=== PATIENT | female | born 1930 | race Two or more races ===

== ENCOUNTER 2018-06-05 21:18 | Inpatient (IN) | payer OTHER ==
[~2018-06-05] VITALS: Ht 162.6 cm; Wt 55.6 kg
[2018-06-05 22:02] LABS: Basophils # (auto) 0.1 uL; Basophils % (auto) 0.9 % (0.0-2.0); Eosinophils # (auto) 0 uL; Eosinophils % (auto) 0.4 % (0.0-7.0); Hematocrit 36.6 % (36.0-46.0); Hemoglobin 12.1 g/dL (12.2-16.2); Lymphocytes # (auto) 0.7 uL; Mean Corpuscular Hemoglobin 31.1 pg (28.0-32.0); Mean Corpuscular Hgb Conc. 32.9 g/dL (32.0-36.0); Mean Corpuscular Volume 94.5 fL (80.0-100.0); Monocytes # (auto) 0.6 uL; Monocytes % (auto) 7.1 % (0.0-12.0); Neutrophils # (auto) 7.1 uL; Neutrophils % (auto) 83.6 % (37.0-80.0); Nucleated Red Blood Cells % 0.1 %; Platelet Count (auto) 132 10^3/uL (140-450); Red Blood Cells 3.87 10^6/uL (4.0-5.20); Red Cell Distribution Width 15.3 % (11.8-14.3); White Blood Cell 8.5 10^3/uL (4.4-10.8)
[2018-06-05 22:09] LABS: Albumin 3.2 g/dL (3.4-5.0); BUN/Creatinine Ratio 25.4; Calcium 7.9 mg/dL (8.5-10.1); Magnesium 2.2 mg/dL (1.6-2.6); Potassium 4.5 mmol/L (3.5-5.1)
[2018-06-05 22:14] LABS: Bilirubin, Total 0.4 mg/dL (0.2-1.0); Total Protein 6.7 g/dL (6.4-8.2)
[2018-06-05] MEDS ORDERED: cloNIDine HCL 0.1 MG TAB PO ONE (23:00)
[2018-06-06] VITALS (8 sets, daily range): BP systolic 104–128; BP diastolic 63–76
[2018-06-06] MEDS ORDERED: FUROSEMIDE 40 MG/4 ML VIAL IV ONE
[2018-06-06] MEDS ORDERED: HYDROcodone-ACET 5/325MG TAB PO PRN (01:30)
[2018-06-06] MEDS ORDERED: ACETAMINOPHEN 325 MG TAB PO PRN (01:30)
[2018-06-06] MEDS ORDERED: ONDANSETRON HCL 4 MG/2 ML VIAL IV PRN (01:30)
[2018-06-06] MEDS ORDERED: NITROGLYCERIN 0.4 MG SL TAB SL PRN (01:30)
[2018-06-06] MEDS ORDERED: TEMAZEPAM 15 MG CAP PO PRN (01:30)
[2018-06-06] MEDS ORDERED: MORPHINE SULFATE 4 MG/ML SYR/VIAL IV PRN (01:30)
[2018-06-06 05:36] LABS: INR 1.57 (0.9-1.15); Partial Thromboplastin Time 29.4 sec (23.78-33.04); Prothrombin Time 16.4 sec (9.27-12.13)
[2018-06-06] MEDS ORDERED: WARF3TAB22 PO (05:58)
[2018-06-06] MEDS ORDERED: ENAL5TAB PO (05:58)
[2018-06-06] MEDS ORDERED: AMIO200T33 PO (05:58)
[2018-06-06] MEDS ORDERED: DOCU100C8 PO (05:58)
[2018-06-06] MEDS: FUROSEMIDE 20 MG/2 ML VIAL IV SCH ×2 (06:16→18:00)
[2018-06-06] MEDS: CARVEDILOL 3.125 MG TAB PO SCH ×2 (08:25→19:36)
[2018-06-06] MEDS: AMIODARONE HCL 200 MG TAB PO SCH (08:26)
[2018-06-06] MEDS: ENALAPRIL MALEATE 2.5 MG TAB PO SCH (08:27)
[2018-06-06] MEDS: ASPirin 81 mg TAB PO SCH (08:27)
[2018-06-06 15:54] LABS: Basophils # (auto) 0 uL; Basophils % (auto) 0.4 % (0.0-2.0); Eosinophils # (auto) 0.1 uL; Eosinophils % (auto) 0.6 % (0.0-7.0); Hematocrit 34.3 % (36.0-46.0); Hemoglobin 11.5 g/dL (12.2-16.2); Lymphocytes # (auto) 0.5 uL; Lymphocytes % (auto) 5.8 % (10.0-50.0); Mean Corpuscular Hemoglobin 31.7 pg (28.0-32.0); Mean Corpuscular Hgb Conc. 33.6 g/dL (32.0-36.0); Mean Corpuscular Volume 94.4 fL (80.0-100.0); Monocytes # (auto) 0.5 uL; Monocytes % (auto) 5.9 % (0.0-12.0); Neutrophils # (auto) 7.2 uL; Neutrophils % (auto) 87.3 % (37.0-80.0); Platelet Count (auto) 123 10^3/uL (140-450); Red Blood Cells 3.64 10^6/uL (4.0-5.20); Red Cell Distribution Width 15.2 % (11.8-14.3); White Blood Cell 8.3 10^3/uL (4.4-10.8)
[2018-06-06 15:57] LABS: BUN/Creatinine Ratio 20.8; Calcium 8.2 mg/dL (8.5-10.1); Magnesium 2.2 mg/dL (1.6-2.6); Potassium 4.1 mmol/L (3.5-5.1)
[2018-06-06] MEDS ORDERED: WARFARIN SODIUM 1 MG TAB PO ONE (17:00)
[2018-06-06] MEDS ORDERED: PHYTONADIONE (VIT K)10 MG/ML 1ML VIAL SUBCUT ONE (20:00)
[2018-06-07 05:11] VITALS: BP 109/53
[2018-06-07] MEDS: FUROSEMIDE 20 MG/2 ML VIAL IV SCH ×2 (06:00→17:58)
[2018-06-07 06:58] LABS: Basophils # (auto) 0 uL; Basophils % (auto) 0.4 % (0.0-2.0); Eosinophils # (auto) 0.1 uL; Eosinophils % (auto) 1.9 % (0.0-7.0); Hematocrit 32.9 % (36.0-46.0); Hemoglobin 11.1 g/dL (12.2-16.2); Lymphocytes # (auto) 0.7 uL; Lymphocytes % (auto) 10.8 % (10.0-50.0); Mean Corpuscular Hemoglobin 31.9 pg (28.0-32.0); Mean Corpuscular Hgb Conc. 33.7 g/dL (32.0-36.0); Mean Corpuscular Volume 94.6 fL (80.0-100.0); Monocytes # (auto) 0.6 uL; Monocytes % (auto) 8.9 % (0.0-12.0); Neutrophils # (auto) 5.2 uL; Platelet Count (auto) 106 10^3/uL (140-450); Red Blood Cells 3.48 10^6/uL (4.0-5.20); White Blood Cell 6.6 10^3/uL (4.4-10.8)
[2018-06-07 06:59] LABS: INR 1.26 (0.9-1.15); Partial Thromboplastin Time 29.7 sec (23.78-33.04); Prothrombin Time 13.3 sec (9.27-12.13)
[2018-06-07 07:14] LABS: Potassium 4.1 mmol/L (3.5-5.1)
[2018-06-07 07:19] LABS: Albumin 2.7 g/dL (3.4-5.0); BUN/Creatinine Ratio 26.7; Calcium 8.3 mg/dL (8.5-10.1)
[2018-06-07 07:21] LABS: Bilirubin, Total 0.8 mg/dL (0.2-1.0); Total Protein 5.7 g/dL (6.4-8.2)
[2018-06-07 08:04] VITALS: BP 120/74
[2018-06-07 08:30] VITALS: BP 120/74
[2018-06-07] MEDS: AMIODARONE HCL 200 MG TAB PO SCH (09:14)
[2018-06-07] MEDS: CARVEDILOL 3.125 MG TAB PO SCH ×2 (09:14→17:59)
[2018-06-07] MEDS: ASPirin 81 mg TAB PO SCH (09:14)
[2018-06-07] MEDS: ENALAPRIL MALEATE 2.5 MG TAB PO SCH (09:15)
[2018-06-07 13:00] VITALS: BP 102/58
[2018-06-07] MEDS ORDERED: FURO20TA PO (13:07)
[2018-06-07 14:46] VITALS: BP 102/58
[2018-06-07 17:00] VITALS: BP 114/63
[2018-06-07] MEDS ORDERED: WARFARIN SODIUM 2 MG TAB PO ONE (17:00)
== END 2018-06-07 19:24 | disposition home health service (06) | DRG 291 ==
LOC: EDBD 21:18 → ER 21:44 → TELE 06-06 01:33 → TELE-WESTW 06-06 02:18
PROVIDERS: ADMIT Nurse Practitioner; ATTEND Internal Medicine
PROC: 0W9B3ZZ Drainage of Left Pleural Cavity, Percutaneous Approach (ICD-10-PCS; principal; 2018-06-07)
DX: I13.0 Hypertensive heart and chronic kidney disease with heart failure and stage 1 through stage 4 chronic kidney disease, or unspecified chronic kidney disease (principal); I50.43 Acute on chronic combined systolic (congestive) and diastolic (congestive) heart failure; J90 Pleural effusion, not elsewhere classified; N18.3 Chronic kidney disease, stage 3 (moderate); I48.0 Paroxysmal atrial fibrillation; J44.9 Chronic obstructive pulmonary disease, unspecified; I70.0 Atherosclerosis of aorta; K21.9 Gastro-esophageal reflux disease without esophagitis; K59.09 Other constipation; Z79.01 Long term (current) use of anticoagulants; Z79.899 Other long term (current) drug therapy; Z95.2 Presence of prosthetic heart valve; Z98.49 Cataract extraction status, unspecified eye; Z79.82 Long term (current) use of aspirin
CPT/HCPCS: 10022; 36415; 71045; 76604; 76942; 80048; 80053; 83615; 83735; 83880; 84484; 85025; 85610; 85730; 87070; 87205; 89051; 93005; 93306; 96374; A6257; G0378; J3430

== ENCOUNTER 2018-09-28 03:58 | Inpatient (IN) | payer OTHER, MEDICAID | END 2018-10-01 15:10 | LOC: ER 03:58 → TELE 09:24 → TELE-EAST 20:20 | PROC: 0W9B3ZX Drainage of Left Pleural Cavity, Percutaneous Approach, Diagnostic (ICD-10-PCS; principal; ~2018-09-28) | DX: J90 Pleural effusion, not elsewhere classified (principal); J18.9 Pneumonia, unspecified organism; I13.0 Hypertensive heart and chronic kidney disease with heart failure and stage 1 through stage 4 chronic kidney disease, or unspecified chronic kidney disease; R06.03 Acute respiratory distress; Z95.2 Presence of prosthetic heart valve; I05.0 Rheumatic mitral stenosis; I48.91 Unspecified atrial fibrillation; I50.9 Heart failure, unspecified; D63.8 Anemia in other chronic diseases classified elsewhere; N18.3 Chronic kidney disease, stage 3 (moderate) ==

== ENCOUNTER 2019-02-07 18:30 | Inpatient (IN) | payer OTHER, MEDICAID | END 2019-02-12 18:00 | LOC: TELE 18:31 → TELE-EAST 02-08 18:25 → ER 18:30 | DX: I11.0 Hypertensive heart disease with heart failure (principal); J18.8 Other pneumonia, unspecified organism; J44.0 Chronic obstructive pulmonary disease with (acute) lower respiratory infection; I50.33 Acute on chronic diastolic (congestive) heart failure; K21.9 Gastro-esophageal reflux disease without esophagitis; F41.9 Anxiety disorder, unspecified; I48.91 Unspecified atrial fibrillation; Z66 Do not resuscitate ==

== ENCOUNTER 2019-03-07 17:55 | Inpatient (IN) | payer OTHER, MEDICAID ==
[~2019-03-07] VITALS: Ht 165.1 cm; Wt 68.5 kg
[~2019-03-07 17:55] MED LIST: AMIO200T33 PO; BRIM0.1S3 EACHEYE; CARV3.1240 PO; DOCU100C8 PO; ENAL5TAB PO; ENO60SY SC; FURO1TAB33 PO; LATA0.0015 EACHEYE; POTA10TA51 PO; TIMO0.5S66 EACHEYE; WARF3TAB22 PO
[2019-03-07 20:13] LABS: Basophils # (auto) 0.1 uL; Basophils % (auto) 0.9 % (0.0-2.0); Eosinophils # (auto) 0.1 uL; Eosinophils % (auto) 1.7 % (0.0-7.0); Hematocrit 37.2 % (36.0-46.0); Hemoglobin 12.4 g/dL (12.2-16.2); Lymphocytes # (auto) 0.8 uL; Lymphocytes % (auto) 13.7 % (10.0-50.0); Mean Corpuscular Hgb Conc. 33.4 g/dL (32.0-36.0); Mean Corpuscular Volume 95.7 fL (80.0-100.0); Monocytes # (auto) 0.6 uL; Monocytes % (auto) 10.8 % (0.0-12.0); Neutrophils # (auto) 4.1 uL; Neutrophils % (auto) 72.9 % (37.0-80.0); Platelet Count (auto) 96 10^3/uL (140-450); Red Blood Cells 3.88 10^6/uL (4.0-5.20); Red Cell Distribution Width 16.5 % (11.8-14.3); White Blood Cell 5.6 10^3/uL (4.4-10.8)
[2019-03-07 20:29] LABS: INR 1.01 (0.9-1.15); Partial Thromboplastin Time 25.9 sec (23.64-32.05)
[2019-03-07 20:44] LABS: Alanine Aminotransferase 21 U/L (13-56); Albumin 2.6 g/dL (3.4-5.0); Anion Gap 8 (5-15); Aspartate Aminotransferase 28 U/L (15-37); BUN/Creatinine Ratio 17.4; Blood Urea Nitrogen 23 mg/dL (7-18); Calcium 8.4 mg/dL (8.5-10.1); Carbon Dioxide 31 mmol/L (21-32); Chloride 102 mmol/L (98-107); GFR African American 49 mL/min; GFR Non-African American 40 mL/min; Glucose 102 mg/dL (74-106); Potassium 4.1 mmol/L (3.5-5.1); Sodium 141 mmol/L (136-145)
[2019-03-07 20:46] LABS: Alkaline Phosphatase 61 U/L (45-117); Bilirubin, Total 0.4 mg/dL (0.2-1.0); Total Protein 6.2 g/dL (6.4-8.2)
[2019-03-08] VITALS (7 sets, daily range): BP systolic 107–144; BP diastolic 60–97
[2019-03-08] MEDS ORDERED: ONDANSETRON HCL 4 MG/2 ML VIAL IV PRN (00:45)
[2019-03-08] MEDS ORDERED: TEMAZEPAM 15 MG CAP PO PRN (01:00)
[2019-03-08] MEDS ORDERED: IPRATROPIUM BROM 0.5 MG/2.5ML INH SOL NEB PRN ×2 (01:00→04:15)
[2019-03-08] MEDS ORDERED: ALBUTEROL SULF 2.5 MG/0.5ML(0.5%) NEB SOLN NEB PRN ×2 (01:00→04:15)
[2019-03-08] MEDS ORDERED: DOCUSATE SOD 100 MG CAP PO PRN (01:00)
--- NOTE | 2019-03-08 03:00 | NUR ---
Telemetry admit from [facility]AD[facility] MONTANOMANJINDER admitted to Telemetry unit after SBAR received. Patient oriented to room and routines, education given by Remedios Trevino RN [facility] Telemetry unit, room 293A, bed A, and unit policies regarding patient care and visiting hours. Patient now on continuous telemetry monitoring, tele box #[id number] and telemetry reading on arrival to unit is Afib with BBB. Patient placed on bedside oxygen, weighed by bedscale and encouraged to call if they need something. All questions and concerns addressed, patient verbalized understanding. 4 p's addressed, bed in low position, SR x 2 up, call light within reach.
[2019-03-08] MEDS ORDERED: BUMETANIDE 1 MG TAB PO SCH (06:00)
[2019-03-08] MEDS ORDERED: IPRATROPIUM BROM 0.5 MG/2.5ML INH SOL NEB SCH (06:00)
[2019-03-08] MEDS: IPRATROPIUM BROM 0.5 MG/2.5ML INH SOL NEB SCH ×3 (06:00→19:22)
[2019-03-08] MEDS: ALBUTEROL SULF 2.5 MG/0.5ML(0.5%) NEB SOLN NEB SCH ×3 (06:00→19:21)
[2019-03-08] MEDS ORDERED: ALBUTEROL SULF 2.5 MG/0.5ML(0.5%) NEB SOLN NEB SCH (06:00)
[2019-03-08 07:17] LABS: Basophils # (auto) 0.1 uL; Eosinophils # (auto) 0.1 uL; Eosinophils % (auto) 1.4 % (0.0-7.0); Hematocrit 36.7 % (36.0-46.0); Hemoglobin 12.3 g/dL (12.2-16.2); Lymphocytes # (auto) 0.8 uL; Lymphocytes % (auto) 14.6 % (10.0-50.0); Mean Corpuscular Hemoglobin 32.1 pg (28.0-32.0); Mean Corpuscular Hgb Conc. 33.5 g/dL (32.0-36.0); Mean Corpuscular Volume 95.8 fL (80.0-100.0); Monocytes # (auto) 0.6 uL; Monocytes % (auto) 9.5 % (0.0-12.0); Neutrophils # (auto) 4.3 uL; Neutrophils % (auto) 73.5 % (37.0-80.0); Platelet Count (auto) 92 10^3/uL (140-450); Red Blood Cells 3.83 10^6/uL (4.0-5.20); Red Cell Distribution Width 16.8 % (11.8-14.3); White Blood Cell 5.8 10^3/uL (4.4-10.8)
[2019-03-08 07:40] LABS: BUN/Creatinine Ratio 18.5; Calcium 8.7 mg/dL (8.5-10.1); Potassium 4.1 mmol/L (3.5-5.1)
--- NOTE | 2019-03-08 08:03 | NUR ---
GROUP MARKETING VP AT BEDSIDE.
--- NOTE | 2019-03-08 08:04 | NUR ---
OPENING SHIFT NOTE: REPORT RECEIVED FROM DIMITRIS MARTINEZ. CARE ENDORSED, PATIENT AWAKE AND RESTING IN BED. EVEN AND UNLABORED RESPIRATIONS NOTED. UPDATED PATIENT ON PLAN OF CARE MIDLINE ORDER PLACED, PATIENT VERBALIZED UNDERSTANDING. CALL LIGHT WITHIN REACH AND BED IN LOWEST POSITION.
--- NOTE | 2019-03-08 09:27 | NUR ---
SPOKE WITH STAMP MOUNTER LETICIA. INFORMED ME OF DR. SAMS PLAN TO HOLD OFF ANOTHER DAY ON THORACENTESIS, AND TO HOLD COUMADIN UNTIL FURTHER NOTICE.
--- NOTE | 2019-03-08 11:05 | NUR ---
Midline Placement Patient educated on need for midline placement. All risks and benefits explained and all questions and concerns addresses prior to procedure. 18g/10cm midline inserted via right basilic vein using Ultrasound. Sterile technique utilized. Blood return obtained from single lumen and flushed easily with NS using proper technique. Midline secured with saline lock; biodisc and occlusive dressing applied. Primary RN notified. Midline lot #[id number].
[2019-03-08] MEDS: CARVEDILOL 3.125 MG TAB PO SCH ×2 (11:11→22:39)
[2019-03-08] MEDS: PANTOPRAZOLE 40 MG TAB PO SCH (11:11)
[2019-03-08] MEDS: FAMOTIDINE 20 MG TAB PO SCH ×2 (11:11→22:40)
[2019-03-08] MEDS: AMIODARONE HCL 200 MG TAB PO SCH (11:11)
--- NOTE | 2019-03-08 12:07 | NUR ---
Respiratory note: ATTEMPTED TO CONDUCT A PRN MED NEB CHECK. AGAIN, PT NOT IN ROOM TO ASSESS.
--- NOTE | 2019-03-08 13:21 | NUR ---
SPOKE WITH DR. MERRILL REGARDING PLAN OF CARE. DR. MERRILL MADE A CALL TO DR. GUERRERO. WILL CONTINUE TO MONITOR AND FOLLOW THROUGH WITH ANY NEW ORDERS.
--- NOTE | 2019-03-08 13:36 | NUR ---
VISITOR AT BEDSIDE.
[2019-03-08] MEDS ORDERED: ALPRAZolam 0.25 MG TAB PO PRN (14:00)
[2019-03-08] MEDS: ALBUMIN 25% 50 ML IV SCH (14:33)
--- NOTE | 2019-03-08 17:58 | NUR ---
[employer] WORKER CONTACTED FOR REQUESTED CAREGIVER: PATIENTS FAMILY FRIEND VISITED PATIENT AND LEFT CONTACT INFORMATION: THERON MCGILL [phone] WHO WISHES TO BECOME NEW CAREGIVER OF PATIENT INSTEAD OF SNF UPON DISCHARGE. SOCIAL WORKERS OUT OF OFFICE AT THIS TIME CONTACTED AND LEFT VOICEMAIL WITH HARSH CROW REGARDING THIS REQUEST.
--- NOTE | 2019-03-08 18:39 | NUR ---
CLOSING NOTE: PATIENT RESTING IN BED AT THIS TIME, CALL LIGHT WITHIN REACH. BED IN LOWEST LOCKED POSITION, COMMODE AT BEDSIDE. PATIENT BREATHING EVEN AND UNLABORED, WEARING OXYGEN. SCD'S IN PLACE PER MD ORDER. DENIES ANY PAIN OR ANXIETY AT THIS TIME. COMMUNICATED WITH CARE TEAM ON FLUID RESTRICTION ORDERS, PATIENT VERBALIZED UNDERSTANDING.
[2019-03-08] MEDS: BUMETANIDE 1mg/4ml VIAL (0.25mg/ml) IV SCH (18:57)
--- NOTE | 2019-03-08 19:15 | NUR ---
CARE ENDORSED TO CARLOS MARTINEZ Addendum: 03/08/19 at 1917 by JOHNNY COHEN RN RN CARE ENDORSED TO DIMITRIS MARTINEZ
--- NOTE | 2019-03-08 19:30 | NUR ---
RECEIVED PT RESTING IN BED, RESPIRATORY TREATMENT IN PROGRESS, PT TOLERATING WELL, NO ACUTE DISTRESS NOTED, NO COMPLAINTS VOICED, SR X 2 UP, 4 P'S ADDRESSED, BED IN LOW POSITION.
--- NOTE | 2019-03-08 20:09 | NUR ---
Educated pt on the need to reposition every 2 hours, verbalized understanding. Addendum: 03/08/19 at 2010 by Remedios Trevino RN RN Amended: Links added.
[2019-03-08] MEDS: LORazepam 2MG/ML-1ML VIAL IV PRN (22:42)
[2019-03-08] MEDS: POTASSIUM EFFERVESENT TAB 25 MEQ PO SCH (22:42)
[2019-03-09] VITALS (10 sets, daily range): BP systolic 87–134; BP diastolic 44–86
[2019-03-09] MEDS: ALBUMIN 25% 50 ML IV SCH ×2 (01:31→06:00)
--- NOTE | 2019-03-09 02:20 | NUR ---
PT OOB TO BSC, STARTED C/O NAUSEA, HEART RATE INCREASED TO 157, AFIB WITH RVR ON FINISHER ACCORDION. EKG DONE CONFIRMED RHYTHM AFIB WITH RVR, PT ASSISTED BACK TO BED, VS BP 75/56, HR 156, 02 SAT 80% ON [address] CORONA STATED PLEASE CALL CARDIOLOGY [facility] T[facility]NER. DR PANDYA NOTIFIED OF PT CONDITION, NEW ORDER FOR MAGNESIUM LAB GIVEN, DELANEY CATH. 0231-PT RESTING IN BED, STATED SHE WAS FEELING BETTER, BP 132/75, HR 72, 88% O2 WITH 5 LITERS NC. 0238-PT STATED SHE WAS HUNGRY, WANTED SOME JELLO, TELE MONITOR RHYTHM AFIB WHICH IS BASELINE, BP 112/56, 99 HR, 92% ON 4 LITERS,
[2019-03-09 03:55] LABS: Anion Gap 9 (5-15); BUN/Creatinine Ratio 17.6; Blood Urea Nitrogen 23 mg/dL (7-18); Calcium 8.4 mg/dL (8.5-10.1); Carbon Dioxide 28 mmol/L (21-32); Chloride 104 mmol/L (98-107); GFR African American 49 mL/min; GFR Non-African American 41 mL/min; Glucose 111 mg/dL (74-106); Magnesium 2.4 mg/dL (1.6-2.6); Potassium 5.2 mmol/L (3.5-5.1); Sodium 141 mmol/L (136-145)
[2019-03-09] MEDS: BUMETANIDE 1mg/4ml VIAL (0.25mg/ml) IV SCH (06:23)
[2019-03-09] MEDS: IPRATROPIUM BROM 0.5 MG/2.5ML INH SOL NEB SCH ×3 (06:43→19:26)
[2019-03-09] MEDS: ALBUTEROL SULF 2.5 MG/0.5ML(0.5%) NEB SOLN NEB SCH ×3 (06:43→19:26)
--- NOTE | 2019-03-09 07:39 | NUR ---
REPORT GIVEN TO JUAN MARQUEZ, PT RESTING IN BED, EDUCATED ON NEED TO CALL STAFF BEFORE ATTEMPTING OOB, NOTED WITH AFIB WITH RVR, DR BENITES AWARE, 4 P'S ADDRESSED, BED IN LOW POSITION, SR X 2 UP, CALL LIGHT WITHIN REACH.
--- NOTE | 2019-03-09 07:45 | NUR ---
RECEIVED PATIENT ALERT AND ORIENTED X4, NOT IN DISTRESS, DIMINISHED LS IN BILATERAL UPPER AND LOWER LUNG LOBES, RR=20 SAT=92%, FEELS WEAK REPORTED, A FIB WITH RVR ON GCIN=174-127 ON TELE MONITOR, MD IS AWARE REPORTED, ABDOMEN SOFT WITH ACTIVE BS, LAST BM=THIS MORNING REPORTED, REFUSED GENERAL SKIN ASSESSMENT, RADIAL AND PEDAL PULSES PALPABLE, RESTING ON BED, HEAD OF BED ELEVATED, BED ON LOWER POSITION, RAILS UP X2, CALL LIGHT ON REACH, PENDING THORACENTESIS, WILL CONTINUE MONITORING.
--- NOTE | 2019-03-09 08:00 | NUR ---
DNR ORDERED, NOT IN DISTRESS, DENIED CHEST PAIN OR SOB AT THIS MOMENT, RADIOLOGY WAS CALLED FOR PARACENTESIS TIME FOLLOW UP AND LEFT A MESSAGE, WAITING FOR CALL BACK, DR. MILAN WAS CALLED AND LEFT A MESSAGE FOR LAB RESULTS AND TELE MONITOR REPORTS, LEFT A MESSAGE AND WAITING FOR CALL BACK, WILL CONTINUE MONITORING.
[2019-03-09] MEDS ORDERED: DILTIAZEM HCL 25 MG/5 ML VIAL IV ONE (08:30)
--- NOTE | 2019-03-09 08:32 | NUR ---
THORACENTESIS DELAY RADIOLOGIST DELAYING THORACENTESIS DUE TO LOW PLATELET COUNT. PATIENT CARE NURSE MADE AWARE. STATES SHE WILL NOTIFY PRIMARY CARE DOCTOR.
[2019-03-09] MEDS ORDERED: NITROGLYCERIN 0.4 MG SL TAB SL PRN (08:45)
[2019-03-09] MEDS ORDERED: METOPROLOL TARTRATE 1MG/1ML-5ML VIAL IV SCH (08:45)
--- NOTE | 2019-03-09 09:15 | NUR ---
PENDING STAT CBC, A FIB W/ RVR R=147 ON TELE MONITOR, DENIED CHEST PAIN OR SOB, C/O GENERALIZED WEAKNESS, STAT CARDIZEM IV X1 WAS GIVEN ORDERED, HEART RATE= A FIB WITH RVR R=80-90, RESTING ON BED, WILL CONTINUE MONITORING.
[2019-03-09 09:55] LABS: INR 0.96 (0.9-1.15)
[2019-03-09] MEDS ORDERED: ALBUMIN 25% 50 ML IV ONE (10:00)
[2019-03-09] MEDS: POTASSIUM EFFERVESENT TAB 25 MEQ PO SCH (10:00)
[2019-03-09] MEDS: AMIODARONE HCL 200 MG TAB PO SCH (10:12)
[2019-03-09] MEDS: FAMOTIDINE 20 MG TAB PO SCH ×2 (10:13→20:51)
[2019-03-09] MEDS: CARVEDILOL 3.125 MG TAB PO SCH ×3 (10:13→20:50)
[2019-03-09] MEDS: PANTOPRAZOLE 40 MG TAB PO SCH (10:14)
[2019-03-09 10:27] LABS: Basophils # (auto) 0.1 uL; Basophils % (auto) 0.8 % (0.0-2.0); Eosinophils # (auto) 0.1 uL; Eosinophils % (auto) 1.1 % (0.0-7.0); Hematocrit 33.4 % (36.0-46.0); Hemoglobin 11.1 g/dL (12.2-16.2); Lymphocytes # (auto) 0.7 uL; Lymphocytes % (auto) 11.1 % (10.0-50.0); Mean Corpuscular Hemoglobin 31.8 pg (28.0-32.0); Mean Corpuscular Hgb Conc. 33.2 g/dL (32.0-36.0); Mean Corpuscular Volume 95.8 fL (80.0-100.0); Monocytes # (auto) 0.7 uL; Monocytes % (auto) 11.8 % (0.0-12.0); Neutrophils # (auto) 4.7 uL; Neutrophils % (auto) 75.2 % (37.0-80.0); Nucleated Red Blood Cells % 0.1 %; Platelet Count (auto) 82 10^3/uL (140-450); Red Blood Cells 3.48 10^6/uL (4.0-5.20); Red Cell Distribution Width 16.7 % (11.8-14.3); White Blood Cell 6.3 10^3/uL (4.4-10.8)
--- NOTE | 2019-03-09 12:21 | NUR ---
BP=88/48 P=88 RR=20 SAT=84, INCREASED O2 TO 5L NC, SAT INCREASE TO 90-91%, NOT IN DISTRESS, DENIED PAIN FELLING TIRED AND WEIRD, REPORTED, A FIB R=90'S ON TELE MONITOR, RT WAS CALLED, DR. MERRILL WAS CALLED AND LEFT A MESSAGE, WAITING FOR CALL BACK, WILL CONTINUE MONITORING,
--- NOTE | 2019-03-09 14:10 | NUR ---
TYPE AND CROSS DONE FOR PENDING PLATELET TRANSFUSION, WENT ON WC TO FOR PARACENTESIS, WILL CONTINUE FOLLOWING UP.
--- NOTE | 2019-03-09 14:46 | NUR ---
THORACENTESIS 1,750MLS OF CLOUDY OCRA COLORED FLUID REMOVED FROM THE LEFT CHEST. V/S BP (1420) 108/61 HR 90, RR 22, 02SAT 95% 02 4L/MIN V/S BP (1435) 100/45 HR 91 RR 20, 02SAT 94% 02 4L/MIN TOLERATED PROCEDURE VERY WELL. RETURNED TO ROOM VIA W/C AFTER S/P CXR TAKEN IN DEPT.
--- NOTE | 2019-03-09 15:19 | NUR ---
assessment re: ss consult discharge planning for different SNF options. Patient is a 88 year old female who is alert and oriented. Prior to admission patient was at [facility]. 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 Per patient she is not happy at [facility]. Patient informed me her disability insurance claim examiner told her she could not go back home on her last visit. Patient informed me she had to give away her mobile home or she would lose it. Patient was then placed at [facility]. I have Augustina from [facility] coming to bedside today to speak with patient about her options. I have also contacted some room and boards for placement for patient. Patient makes 1,181.00 per month. [facility] from [facility] board to meet with patient at bedside. Patient verbalized understanding and agreed to Augustina and [facility] to visit her at bedside. Addendum: 03/09/19 at 1535 by Loulou BALDWIN Amended: Links added.
--- NOTE | 2019-03-09 15:27 | NUR ---
CAME BACK FROM [facility] THORACENTESIS, TOLERATED WELL, ALERT AND ORIENTED, NOT IN DISTRESS, T=98.2 RR=18 SAT=99% P=82 BP=96/59, DENIED SOB AND CHEST DISCOMFORT, DENIED PAIN AT THIS MOMENT, WILL CONTINUE MONITORING.
--- NOTE | 2019-03-09 16:08 | NUR ---
PT PATIENT REFUSED PT TODAY. WILL TRY AGAIN TOMORROW MORNING. NOTIFIED JUAN REILLY. Addendum: 03/09/19 at 1608 by ROSE GAN PTT Amended: Links added.
--- NOTE | 2019-03-09 19:00 | NUR ---
PLATELET IV X1U ADMINISTERED, NO ADVERSE REACTION OR DISCOMFORT NOTED, RESTING ON BED.
--- NOTE | 2019-03-09 19:30 | NUR ---
RESTING OB BED, NOT IN DISTRESS, DENIED PAIN AT THIS MOMENT, REPORT WAS GIVEN TO THE CUSTOMS AND BORDER PROTECTION INSPECTOR RN.
--- NOTE | 2019-03-09 19:45 | NUR ---
RECEIVED PT RESTING IN BED, S/P THORACENTESIS WITH GENERALIZED WEAKNESS NOTED, EDUCATED ON NEED TO CALL STAFF PRIOR TO GETTING OOB, VERBALIZED UNDERSTANDING, 4 P'S ADDRESSED, BED IN LOW POSITION, SR X 2 UP, CALL LIGHT WITHIN REACH, NO ACUTE DISTRESS NOTED, NO COMPLAINTS VOICED AT THIS TIME.
[2019-03-09] MEDS: LORazepam 2MG/ML-1ML VIAL IV PRN (20:51)
[2019-03-09] MEDS ORDERED: CARVEDILOL 3.125 MG TAB PO SCH (22:00)
--- NOTE | 2019-03-10 02:20 | NUR ---
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
[2019-03-10] MEDS ORDERED: METOPROLOL TARTRATE 1MG/1ML-5ML VIAL IV PRN (02:30)
[2019-03-10] MEDS: LORazepam 2MG/ML-1ML VIAL IV PRN (02:39)
[2019-03-10 05:09] VITALS: BP 101/56
[2019-03-10] MEDS ORDERED: METOPROLOL TARTRATE 1MG/1ML-5ML VIAL IV SCH (06:00)
[2019-03-10] MEDS: IPRATROPIUM BROM 0.5 MG/2.5ML INH SOL NEB SCH ×3 (06:25→19:39)
[2019-03-10] MEDS: ALBUTEROL SULF 2.5 MG/0.5ML(0.5%) NEB SOLN NEB SCH ×3 (06:25→19:39)
--- NOTE | 2019-03-10 07:30 | NUR ---
REPORT GIVEN TO NORMA HERNANDEZ RESTING IN BED, NO ACUTE DISTRESS NOTED, NO COMPLAINTS VOICED, BED IN LOW POSITION, SR X 2 UP.
--- NOTE | 2019-03-10 07:30 | NUR ---
REPORT GIVEN TO NORMA HERNANDEZ RESTING IN BED, NO ACUTE DISTRESS NOTED, NO COMPLAINTS VOICED, BED IN LOW POSITION, SR X 2 UP.
--- NOTE | 2019-03-10 07:33 | NUR ---
OPENING NOTE Assumed care of patient from [facility] RN, Remedios. Patient resting in bed with eyes closed, even rise and fall of chest noted. S/S of distress/SOB or pain. Nasal cannula in place, connected to 3L O2. SCD's on bilateral lower extremities set at intermittent intervals. Bed in lowest, locked position with side rails up x2. Fall precautions in place and call light within reach. Will continue to monitor for changes Q1hr and PRN.
[2019-03-10 08:04] VITALS: BP 125/74
[2019-03-10 09:39] LABS: Basophils # (auto) 0 uL; Basophils % (auto) 0.7 % (0.0-2.0); Eosinophils # (auto) 0.1 uL; Eosinophils % (auto) 1.5 % (0.0-7.0); Hematocrit 32.4 % (36.0-46.0); Lymphocytes # (auto) 0.8 uL; Mean Corpuscular Hemoglobin 32.5 pg (28.0-32.0); Mean Corpuscular Hgb Conc. 33.8 g/dL (32.0-36.0); Monocytes # (auto) 0.5 uL; Monocytes % (auto) 8.6 % (0.0-12.0); Neutrophils # (auto) 4.2 uL; Neutrophils % (auto) 75.2 % (37.0-80.0); Nucleated Red Blood Cells % 0.1 %; Platelet Count (auto) 79 10^3/uL (140-450); Red Blood Cells 3.38 10^6/uL (4.0-5.20); Red Cell Distribution Width 16.9 % (11.8-14.3); White Blood Cell 5.6 10^3/uL (4.4-10.8)
[2019-03-10 09:44] LABS: Calcium 8.6 mg/dL (8.5-10.1); Potassium 4.4 mmol/L (3.5-5.1)
[2019-03-10 09:46] LABS: BUN/Creatinine Ratio 16.1
[2019-03-10] MEDS: AMIODARONE HCL 200 MG TAB PO SCH (10:34)
[2019-03-10] MEDS: PANTOPRAZOLE 40 MG TAB PO SCH (10:35)
[2019-03-10] MEDS: FAMOTIDINE 20 MG TAB PO SCH (10:35)
[2019-03-10] MEDS: CARVEDILOL 3.125 MG TAB PO SCH (10:35)
--- NOTE | 2019-03-10 10:41 | NUR ---
BSC Assisted patient with minimal assistance to bedside commode.
--- NOTE | 2019-03-10 11:18 | NUR ---
MD PAGED Patient under the impression that a right sided Thoracentesis was going to be done today. Informed that nothing is currently scheduled but would verify with MD to confirm. Spoke with Dr. Mckoy, states there is not enough fluid on right side so procedure is not needed. Patient informed.
--- NOTE | 2019-03-10 11:24 | NUR ---
SS Left messaged for SS, Loulou, regarding discharge.
--- NOTE | 2019-03-10 11:45 | NUR ---
Estimated needs based on CBW 68.5 kg-geriatric needs 6270-9284 kcal (25-30 kcal/kg) 68-82 g protein (1.0-1.2 g/kg) Addendum: 03/10/19 at [address] Amended: Links added.
--- NOTE | 2019-03-10 12:24 | NUR ---
AT BEDSIDE Dr. Andres at patient's bedside. Recommends patient follow up with microbiology professor, Dr. Wade, outpatient.
[2019-03-10 12:46] VITALS: BP 90/58
--- NOTE | 2019-03-10 16:15 | NUR ---
SS Received call from DENNY, Loulou, stating that patient has to have PT evaluation in order to return [facility]. Patient informed that she can not refuse evaluation, patient aware and verbalized understanding.
--- NOTE | 2019-03-10 16:31 | NUR ---
PT Bed out of bed, ambulating with FWW and stand by PT assistance. Addendum: 03/10/19 at 1636 by MARY QUINTANILLA RN Per PTAri, patient requires minimal bed transfer assistance.
--- NOTE | 2019-03-10 16:51 | NUR ---
I faxed updated PT notes to [facility]-requesting authorization for [facility].
[2019-03-10 17:16] VITALS: BP 127/55
--- NOTE | 2019-03-10 17:34 | NUR ---
D/C planning Per consult for SNF placement. Contacted [facility] Ph: ( [phone]) Fax: ) faxed medical records. Per Aniya from [facility] pt has been accepted to room [address] accepting MD Dr. Lares. Loulou Advised Jocelin from [facility] will provide authorization for SNF and [facility]. Jocelin from [facility] contacted me at 17:30 with authorization number SNF [id number] [facility] [id number]. Contacted Bryanna from [facility] acute and provided her with authorization. Contacted [facility] transport ph: ( [phone]) spoke with Lacie. Per Lacie from [facility] transportation will be between the hours 18:00-21:00. Informed JUAN Monreal. Addendum: 03/10/19 at 1753 by DALILA TRIVEDI Amended: Links added.
--- NOTE | 2019-03-10 19:55 | NUR ---
CLOSING NOTE Endorsed care of patient to [facility] R[facility]. Aware of patient's pending transfer to [facility].
--- NOTE | 2019-03-10 20:15 | NUR ---
Patient transferred to [facility] via [facility]. Report given to receiving RN. Discharge instructions given as ordered. All questions and concerns addressed. Patient verbalized understanding. Medication reconciliation form completed and copy given to patient. IV removed with catheter intact, pressure dressing applied. Telemetry unit returned to ICU. No distress noted at time of departure.
== END 2019-03-10 20:15 | DRG 187 ==
LOC: EDBD 17:55 → ER 18:10 → TELE 18:11 → TELE-WESTW 03-08 03:13
PROVIDERS: ADMIT Nurse Practitioner Family; ATTEND Hospitalist
PROC: 0W9B3ZZ Drainage of Left Pleural Cavity, Percutaneous Approach (ICD-10-PCS; principal; 2019-03-09)
PROC: 30233R1 Transfusion of Nonautologous Platelets into Peripheral Vein, Percutaneous Approach (ICD-10-PCS; 2019-03-09)
DX: J90 Pleural effusion, not elsewhere classified (principal); I50.32 Chronic diastolic (congestive) heart failure; I48.91 Unspecified atrial fibrillation; E87.5 Hyperkalemia; K21.9 Gastro-esophageal reflux disease without esophagitis; J44.9 Chronic obstructive pulmonary disease, unspecified; F41.9 Anxiety disorder, unspecified; I25.10 Atherosclerotic heart disease of native coronary artery without angina pectoris; I11.0 Hypertensive heart disease with heart failure; D63.8 Anemia in other chronic diseases classified elsewhere; D69.6 Thrombocytopenia, unspecified; E88.09 Other disorders of plasma-protein metabolism, not elsewhere classified; I05.0 Rheumatic mitral stenosis; I45.10 Unspecified right bundle-branch block; I48.2 Chronic atrial fibrillation; I70.0 Atherosclerosis of aorta; Z79.899 Other long term (current) drug therapy; Z82.3 Family history of stroke; Z82.49 Family history of ischemic heart disease and other diseases of the circulatory system; Z95.2 Presence of prosthetic heart valve
CPT/HCPCS: 10022; 32555; 36415; 36600; 71045; 76604; 76942; 80048; 80053; 82805; 83735; 83880; 84484; 85025; 85610; 85730; 86850; 86900; 86901; 87081; 93005; 93306; 94640; G0378